=== PATIENT | female | born 1960 | race Caucasian/White ===

== ENCOUNTER 2017-06-29 05:45 | Day surgery (SDC) | payer OTHER ==
[~2017-06-29] VITALS: Ht 160 cm; Wt 69.8 kg
[~2017-06-29 05:45] MED LIST: NORCO 7.5-3251 EACH PO; ULTRAM50 MG PO
[2017-06-29] MEDS ORDERED: KEFLEX500 MG PO (06:06)
--- NOTE | 2017-06-29 11:15 | NUR ---
06/29/17 1115 Carol Fox 1106 PT ARRIVED IN PACU WIDE AWAKE TALKING TO STAFF. 1115 XRAY IN ROOM.
--- NOTE | 2017-07-14 08:42 | OR ---
[facility] [address], [place] [address] Signed DATE OF OPERATION: 06/29/2017 SURGEON: Catalino Moulton DPM PREOPERATIVE DIAGNOSIS: Hallux valgus with bunion deformity, right foot. POSTOPERATIVE DIAGNOSIS: Hallux valgus with bunion deformity, right foot. SYSTEMS ANALYST ENGINEER SURGEON: Eveline Verma DPM ANESTHESIA: IV general. TOBACCO PACKER: Minerva Gaona CRNA SPECIMEN TO PATHOLOGY: None. PROCEDURE: Lapidus bunionectomy, right foot. DESCRIPTION OF PROCEDURE: The patient was brought to the operating room and placed on the table in the supine position. Anesthesia department administered IV sedation, after which a local block was given to the right foot using 14 mL of 1:1 mixture of 0.5% ropivacaine plain and 2% lidocaine plain. The right leg and foot were then prepped and draped in the usual sterile manner and an Esmarch was used for hemostasis. Attention was initially directed to the dorsal/medial aspect of right 1st MPJ, where a linear longitudinal incision was made extending from the base of the hallux proximally to the level just past the 1st metatarsal-cuneiform joint. The incision was initially full-thickness through the dermis, then deepened through subcutaneous tissue using careful dissection and cautery as necessary for hemostasis. Once at the level of deep fascia and joint capsule over the 1st MPJ, a linear longitudinal incision was made to open the joint capsule. Soft tissues were then reflected medially to expose the medial aspect of the 1st metatarsal head. Very little bony prominence noted at this site; Electronically Signed By: CATALINO MOULTON DPM 07/14/17 0842 PATIENT NAME: VERONIKA HAGAN OPERATIVE REPORT DATE OF : 58 PHYSICIAN: CATALINO MOULTON DPWilmar REPORT #: [id number] REPORT IS CONFIDENTIAL AND NOT TO BE RELEASED WITHOUT AUTHORIZATION [facility] [address], [place] [address] Signed however, a small amount of bone was removed and the medial 1st metatarsal head smoothed to remove any bump or rough areas. At this time, attention was directed to the 1st intermetatarsal space, where a lateral release was performed. At this time, adequate mobilization was made for the hallux to allow change and correction to the valgus position of the toe. Attention was then directed to the proximal end of the incision over the 1st metatarsal-cuneiform joint. Dissection was deepened at this location using sharp and blunt dissection. Once at the level of joint capsule and deep fascia, an incision was made to open the joint. Soft tissues were reflected to expose the dorsal and medial aspects of the joint and to allow preparation of the joint for fusion. Using a joint distractor as well as hand and power instrumentation, the joint was remodeled to allow reduction in the 1st intermetatarsal angle and appropriate positioning for fusion. Cartilage was denuded from portions of the joint. Other portions of the cartilage were removed with bone resection. The joint surfaces were then fenestrated using a K-wire and the position and alignment to the joint checked with alignment to the 1st metatarsal and this appeared to provide good correction. The 1st metatarsal then temporarily fixated with the use of K-wires and the plate and screws then readied for fixation of the 1st metatarsal. The plate and screws were then placed across the 1st metatarsal-cuneiform joint, checking in the process for appropriate screw size as well as positioning with the use of intraoperative fluoroscopy. The position of the 1st metatarsal had shifted during placement of the plate and screws, this necessitated removal of the plate and screws and repositioning to the 1st metatarsal, then re-application of the hardware, this was then achieved and position and alignment of the hardware as well as 1st metatarsal confirmed with intraoperative C-arm images. The surgical site then irrigated with copious amounts of normal saline. The surgical site was then closed with 3-0 Vicryl for the deep capsular and fascia closure, subcutaneous tissue then closed with 4-0 Vicryl, and skin closed using skin ramiro. Dressings were then applied consisting of Adaptic, Betadine-soaked gauze, dry gauze, Kerlix fluffs, Flexicon, and Coban to provide mild compression. Cast padding and Coban used to the ankle area and above the ankle to provide some additional compression. INTRAOPERATIVE COMPLICATIONS: Just the hardware placement as indicated. ESTIMATED BLOOD LOSS: Less than 30 mL. Note, the patient tolerated the procedure and the anesthesia well and left the operating room with vital signs stable and vascular status intact to the right foot as evidenced by hyperemia and good capillary refill time to the toes of the right foot. Electronically Signed By: CATALINO MOULTON DPM 07/14/17 0842 PATIENT NAME: VERONIKA HAGAN OPERATIVE REPORT DATE OF : 58 PHYSICIAN: CATALINO MOULTON DPM REPORT #: [id number] REPORT IS CONFIDENTIAL AND NOT TO BE RELEASED WITHOUT AUTHORIZATION [address] [address] Signed NATHAN Alvarado/CHRIS /[id number] Electronically Signed By: CATALINO MOULTON DPM 07/14/17 0842 PATIENT NAME: VERONIKA HAGAN JUSTIN OPERATIVE REPORT DATE OF : 58 PHYSICIAN: CATALINO MOULTON DPM REPORT #: [id number] REPORT IS CONFIDENTIAL AND NOT TO BE RELEASED WITHOUT AUTHORIZATION
== END 2017-06-29 11:52 | disposition home or self-care (01) ==
LOC: DS 05:45 → OPS 05:45 → DS 06:45
PROVIDERS: Podiatrist Foot Surgery
PROC: 0SGK0ZZ (ICD-10-PCS; principal; 2017-06-29 06:45)
DX: M21.611 Bunion of right foot (principal); M20.11 Hallux valgus (acquired), right foot; Z88.8 Allergy status to other drugs, medicaments and biological substances
CPT/HCPCS: 01480; 73620; 73630; C1713; C1769; J0690; J1100; J1885; J2250; J2405; J2704; J2795; J3010; J7120

== ENCOUNTER 2025-05-28 05:53 | Day surgery (SDC) | payer MEDICARE, OTHER ==
[2025-05-21 16:43] VITALS: BP 121/73
[~2025-05-28] VITALS: Ht 160 cm; Wt 72.7 kg
[~2025-05-28 05:53] MED LIST changes: +KEFLEX500 MG PO; +LACTATED RINGER'S 1,000 ML IV SCH
[2025-05-28 06:06] VITALS: BP 112/57
[2025-05-28] MEDS ORDERED: LIDOCAINE HCL 1% 5 ML SDV INJ ONE (07:00)
[2025-05-28] MEDS ORDERED: IBLOOD GLUCOSE TEST STRIP 1 EA TEST VI PRN (07:00)
[2025-05-28] MEDS ORDERED: LIDOCAINE HCL 2% 5 ML SDV ONE (07:07)
--- NOTE | 2025-05-28 07:50 | NUR ---
05/28/25 6655 Erendira Zavaleta 3640-PATIENT ARRIVED TO PACU ON 6L MASK RR EVEN NONAROUSABLE LAYING LEFT LATERAL ABDOMEN SOFT. SR HR 70'S. IVF INFUSING.
[2025-05-28 08:24] VITALS: BP 111/67
== END 2025-05-28 08:30 | disposition home or self-care (01) ==
LOC: DS 05:53
PROVIDERS: ATTEND Surgery
PROC: 0DJD8ZZ Inspection of Lower Intestinal Tract, Via Natural or Artificial Opening Endoscopic (ICD-10-PCS; principal; 2025-05-28 07:30)
DX: Z12.11 Encounter for screening for malignant neoplasm of colon (principal); K57.30 Diverticulosis of large intestine without perforation or abscess without bleeding
CPT/HCPCS: 00812; J2003; J2704